=== PATIENT | female | born 1995 | race Caucasian/White ===

== ENCOUNTER 2025-06-07 10:30 | Inpatient (IN) | payer BC ==
[2025-06-07] MEDS ORDERED: TERBUTALINE 1 MG/ML VIAL SQ PRN (16:37)
[2025-06-07] MEDS ORDERED: LIDOCAINE 0.5% (PF) 5 MG/ML (50 ML SDV) SQ PRN (16:37)
[2025-06-07] MEDS ORDERED: OXYTOCIN 10 UNIT/ML 1 ML VIAL IM PRN (16:37)
[2025-06-07] MEDS ORDERED: METHYLERGONOVINE 0.2 MG/ML 1 ML AMP IM PRN (16:37)
[2025-06-07] MEDS ORDERED: NALBUPHINE 10 MG/ML (10 ML MDV) IV PRN (16:37)
[2025-06-07] MEDS ORDERED: TRANEXAMIC 1,000 MG/100ML-NACL 1,000 MG in EMPTY BAG 1 BAG IV PRN (16:37)
--- NOTE | 2025-06-07 16:37 | P.HPOB ---
History of Present Illness H&P Date: 06/07/25 Chief Complaint: Elective induction of labor Ms. Hill is a 30 year old at 39 weeks and 6 days with EDC of 06/08/2025 by LMP consistent with 13 week US who presents for elective induction of labor. Her has been essentially uncomplicated. The fetus is estimated to weigh in the 49%ile for gestational age based on a 32 week growth US. labs: Blood type A negative (s/p rhogam at 28 weeks), antibody screen negative, rubella immune, HBsAg negative, HIV negative, HCV Ab negative, gonorrhea negative, chlamydia negative, 1 hour GTT within normal limits, GBS negative. s/p TDap in 3rd trimester. Medications and Allergies Home Medications Medication Instructions Recorded Confirmed Type Aspirin [[place] Aspirin EC] 81 mg PO DAILY 06/07/25 06/07/25 History Vit No.179/Iron/Folic 1 tab PO DAILY 06/07/25 06/07/25 History [ Tablet] Allergies Allergy/AdvReac Type Severity Reaction Status Date / Time No Known Allergies Allergy Verified 06/07/25 16:20 Exam Intake and Output 06/07/25 06/07/25 06/07/25 06:59 14:59 22:59 Other: Weight 76.204 kg Focused physical exam is performed. This is a healthy-appearing in no apparent distress. Breathing is non-labored. Abdomen is gravid and non-tender. Cervical exam is 1/long/high. Cooks catheter is placed with sterile speculum, 60cc of sterile water are used to fill each balloon. Extremities non-tender and non-edematous. heart tones are Category I and tocometer is graphing contractions every 2-4 minutes. Assessment and Plan Assessment: 30 year old at 39 weeks and 6 days presenting for elective induction of labor Plan: Admit, clear liquid diet, low-dose pitocin with cooks catheter x12 hours, plan for AROM in the morning, nubain prn pain overnight. Continuous EFM and tocometer.
[2025-06-07] MEDS ORDERED: OXYTOCIN 30 UNITS/500 ML NS 30 UNIT in SALINE 1 500ML.BAG IV SCH (16:45)
[2025-06-07] MEDS: LACTATED RINGERS 1,000 ML IV SCH (16:58)
[2025-06-07 17:14] LABS: Basophils # (A) 0.04 10*3/uL (0.00-0.10); Basophils % (A) 0.4 %; Eosinophils # (A) 0.14 10*3/uL (0.04-0.35); Eosinophils % (A) 1.4 %; HCT 36.4 % (37.2-46.3); HGB 12.4 g/dL (12.0-15.0); Lymphocytes # (A) 1.70 10*3/uL (0.90-5.00); Lymphocytes % (A) 16.8 %; MCH 30.3 pg (27.0-32.0); MCHC 34.1 g/dL (32.0-37.0); MCV 89.0 fL (80.0-97.0); Monocytes # (A) 0.70 10*3/uL (0.20-1.00); Monocytes % (A) 6.9 %; Neutrophils # (A) 7.46 10*3/uL (1.80-7.70); Neutrophils % (A) 73.7 %; Platelet Count 192 10*3/uL (140-440); RBC 4.09 10*6/uL (4.10-5.20); RDW 13.1 % (11.5-14.5); WBC 10.12 10*3/uL (4.50-10.00)
[2025-06-07] MEDS: OXYTOCIN 30 UNITS/500 ML NS 30 UNIT in SALINE 1 500ML.BAG IV SCH (18:12)
[2025-06-08] MEDS: LACTATED RINGERS 1,000 ML IV SCH (01:59)
[2025-06-08] MEDS ORDERED: fentaNYL (PF) 50 MCG/ML 5 ML AMP ONE (09:54)
[2025-06-08] MEDS ORDERED: SODIUM CHLORIDE 0.9% 250 ML BAG ONE (09:54)
[2025-06-08] MEDS ORDERED: ROPIVACAINE 5 MG/ML 30 ML VIAL ONE (09:54)
[2025-06-08] MEDS: diphenhydrAMINE 50 MG/ML 1 ML VIAL IVP STA (15:25)
[2025-06-08] MEDS ORDERED: diphenhydrAMINE 25 MG CAP PO PRN (18:51)
[2025-06-08] MEDS ORDERED: HYDROCORTISONE 2.5% RECTAL CREAM 30 GM TUBE RECTAL PRN (18:51)
[2025-06-08] MEDS ORDERED: SIMETHICONE 80 MG CHEWABLE PO PRN (18:51)
[2025-06-08] MEDS ORDERED: BENZOCAINE/MENTHOL SPRAY 1 GM/SPRAY AEROSOL TOPICAL PRN (18:51)
[2025-06-08] MEDS ORDERED: ZOLPIDEM 5 MG TAB PO PRN (18:51)
[2025-06-08] MEDS ORDERED: diphenhydrAMINE 50 MG/ML 1 ML VIAL IVP PRN ×2 (18:51)
[2025-06-08] MEDS ORDERED: LANOLIN CREAM 1 GM TUBE TOPICAL PRN (18:51)
--- NOTE | 2025-06-08 18:52 | P.PROBDLV ---
Vaginal Delivery Note - . Vaginal Delivery Note: DATE OF SERVICE: 06/08/2025 PROCEDURE: Normal Vaginal Delivery ATTENDING: Dr. Briana Black MD ESTIMATED BLOOD LOSS: 300 mL FINDINGS: VMI, Apgars 9/9. Weight 8 pounds and 9 ounces (3885 grams) PROCEDURE: Ms. Hill is a 30 year old at 40 weeks presenting to labor and delivery for induction of labor. For further details, please review the admitting H&P. Cooks catheter was placed overnight on 06/07 with low-dose oxytocin. After removal, AROM was undertaken at 727 on 06/08 revealing clear amniotic fluid. The patient received epidural anesthesia per her request. The patient was completely dilated at 1740. She pushed effectively with Category I to II FHTs. A viable male was delivered at 1824 over an intact perineum. The infant was placed on the maternal abdomen and bulb suctioned. The infant was noted to be spontaneously crying. Cord was clamped and cut after a 60-second delay. The was handed off to the pediatric team. Placenta was delivered whole with gentle cord traction at 1828. Oxytocin was started to facilitate uterine tone. Uterine fundus was found to be firm and below the umbilicus upon fundal massage. Thorough examination of the cervix, vagina, periurethral area, and perineum revealed bilateral sulcal lacaerations. These areas were infiltrated with lidocaine and repaired with 2-0 Vicryl in a running fashion. The patient is stable and allowed to begin the bonding process.
[2025-06-08 19:46] VITALS: RESP 16
[2025-06-08] MEDS: SENNOSIDES-DOCUSATE SODIUM 1 EACH TAB PO SCH (21:26)
[2025-06-08] MEDS: IBUPROFEN 800 MG TAB PO SCH (23:55)
[2025-06-09] MEDS: ACETAMINOPHEN TAB 500 MG TAB PO SCH (04:45)
[2025-06-09 06:34] LABS: Basophils # (A) 0.04 10*3/uL (0.00-0.10); Basophils % (A) 0.2 %; Eosinophils # (A) 0.10 10*3/uL (0.04-0.35); Eosinophils % (A) 0.6 %; HCT 29.3 % (37.2-46.3); Immature Platelet Fraction 4.9 % (1.1-6.1); Lymphocytes # (A) 1.95 10*3/uL (0.90-5.00); Lymphocytes % (A) 12.1 %; MCH 31.2 pg (27.0-32.0); MCHC 34.1 g/dL (32.0-37.0); MCV 91.3 fL (80.0-97.0); Monocytes # (A) 1.17 10*3/uL (0.20-1.00); Monocytes % (A) 7.3 %; Neutrophils # (A) 12.72 10*3/uL (1.80-7.70); Neutrophils % (A) 79.1 %; RBC 3.21 10*6/uL (4.10-5.20); RDW 13.2 % (11.5-14.5); WBC 16.09 10*3/uL (4.50-10.00)
[2025-06-09 08:17] LABS: HGB 10.0 g/dL (12.0-15.0)
--- NOTE | 2025-06-09 08:44 | P.DS ---
Providers Date of admission: 06/07/25 16:04 Expected date of discharge: 06/09/25 Attending physician: Briana Black MD Primary care physician: Stated None Hospital Course: Ms. Hill is a 30 year old now PPD#1 s/p after elective induction of labor at 40 weeks. The patient is doing well this morning and had no acute events overnight. She has no complaints this morning. She reports minimal lochia, passing flatus, voiding without difficulty, ambulating, and eating/drinking without nausea or vomiting. doing well at bedside, s/p circumcision. She denies chest pain, shortness of breathing, fevers, or chills overnight. She denies pain or swelling in the legs. restrictions are reviewed with the patient including pelvic rest for 6 weeks. The patient is encouraged to call the office if she experiences any heavy bleeding, foul- smelling discharge, breast complaints, or any if she has any other concerns. She will follow up in the office with in 6 weeks for exam. All questions are answered. Patient Condition at Discharge: Good Plan - Discharge Summary Discharge Rx Participant: No New Discharge Prescriptions: No Action Vit No.179/Iron/Folic [ Tablet] 1 tab PO DAILY Aspirin [[place] Aspirin EC] 81 mg PO DAILY Discharge Medication List Aspirin [[place] Aspirin EC] 81 mg PO DAILY 06/07/25 [History] Vit No.179/Iron/Folic [ Tablet] 1 tab PO DAILY 06/07/25 [History] Follow up Appointment(s)/Referral(s): Briana lBack MD [STAFF PHYSICIAN] - 07/19/25 2:00 pm Activity/Diet/Wound Care/Special Instructions: Instructions 1. Do not begin any exercise program for 3 weeks. 2. Do not resume sexual relations for 6 weeks or longer if uncomfortable. 3. You may take tub baths or showers at any time. 4. You may use tampons if desired after 6 weeks. 5. Keep any areas repaired with stitches clean and dry. 6. If you are not nursing, wear a good fitting, supportive bra during the day and limit fluid intake for at least 1 week to prevent breast engorgement. 7. Call the office, , within the next week to make appointment for your 6 week checkup if it has not already been made. 8. Report any of the following occurrences to the doctor promptly: a. Heavy, excessive bleeding b. Chills, fever c. Burning or frequency of urination d. Pain or redness and breasts if nursing e. Increasing pain or swelling of vulva (stitches). In addition to the above instructions, the following additional should be followed: 1. No heavy lifting or straining (exercising) until after 6 week checkup. 2. Keep abdominal incision clean and dry: You may wear a dressing if more comfortable. 3. Make office appointment for 2 weeks after delivery date. Discharge Disposition: HOME SELF-CARE
[2025-06-09 09:17] LABS: Platelet Count 146 10*3/uL (140-440)
[2025-06-09] MEDS: Rhogam IMMUNE GLOBULIN 1,500 UNIT/1 ML IM ONE (09:54)
[2025-06-09 16:25] VITALS: BP 106/70; PULSE 90; TEMP 98.7
== END 2025-06-09 18:30 | disposition home or self-care (01) | DRG 807 ==
LOC: 4FBP 16:04
PROVIDERS: ADMIT Obstetrics & Gynecology; ATTEND Obstetrics & Gynecology
PROC: 3E033VJ Introduction of Other Hormone into Peripheral Vein, Percutaneous Approach (ICD-10-PCS; 2025-06-07)
PROC: 0U7C7DJ Dilation of Cervix with Intraluminal Device, Temporary, Via Natural or Artificial Opening (ICD-10-PCS; 2025-06-07)
PROC: 10E0XZZ Delivery of Products of Conception, External Approach (ICD-10-PCS; principal; 2025-06-08)
PROC: 0HQ9XZZ Repair Perineum Skin, External Approach (ICD-10-PCS; principal; 2025-06-08)
PROC: 10907ZC Drainage of Amniotic Fluid, Therapeutic from Products of Conception, Via Natural or Artificial Opening (ICD-10-PCS; principal; 2025-06-08)
PROC: 3E0234Z Introduction of Serum, Toxoid and Vaccine into Muscle, Percutaneous Approach (ICD-10-PCS; 2025-06-09)
DX: O26.893 Other specified pregnancy related conditions, third trimester (principal); O70.0 First degree perineal laceration during delivery; Z67.11 Type A blood, Rh negative; Z79.82 Long term (current) use of aspirin; Z3A.39 39 weeks gestation of pregnancy; Z37.0 Single live birth
CPT/HCPCS: 85025; 85461; 86850; 86900; 86901